=== PATIENT | male | born 1985 ===

== ENCOUNTER 2018-03-09 17:34 | Emergency (ER) | payer OTHER ==
[2018-03-09] MEDS ORDERED: Acetaminophen/Codeine 120-12 MG/5 ML Soln 5 ML UD Cup PO ONE (18:27)
[2018-03-09] MEDS ORDERED: Ibuprofen Susp 100 MG/5 ML 5 ML UD Cup PO ONE (18:28)
--- NOTE | 2018-03-19 17:53 | EDM.PDOC ---
Scribed by Rosalia Escalera 03/09/18 0405 for Joe Caal MD ED HPI GENERAL MEDICAL PROBLEM - General Chief Complaint: ENT Problem Stated Complaint: PAIN AFTER SURGERY [id number] Time Seen by Provider: 03/09/18 18:21 Source of Information: Reports: Patient, RN, RN Notes Reviewed History Limitations: Reports: No Limitations - History of Present Illness INITIAL COMMENTS - FREE TEXT/NARRATIVE: Pt c/o severe mouth/dental pain. reports pt had all of his teeth extracted this morning and dentures were placed at the same time. Pt was instructed by the oral surgeon to leave the dentures in place, and not to remove them for any reason. Pt was prescribed 2 medications for pain, but when he went to the pharmacy he discovered that he was prescribed tylenol and ibuprofen, and states that he cannot even get the pills in his mouth without severe pain, and he has difficulty swallowing them. Onset: Today Location: Reports: Other (dental) Quality: Reports: Ache, Throbbing Severity: Severe Improves with: Reports: None Worsens with: Reports: None Associated Symptoms: Reports: No Other Symptoms Treatments [employer]: Reports: Acetaminophen, NSAIDS, Other Medication(s) Oral/Mouth Pain Score (Numeric/FACES): 8 - Related Data Allergies Allergy/AdvReac Type Severity Reaction Status Date / Time No Known Allergies Allergy Verified 03/09/18 18:13 Home Meds: Home Meds . [Unable to Verify Home Med List] 03/09/18 [History] Past Medical History Psychiatric History: Reports: Anxiety, PTSD Social & Family History - Family History Family Medical History: Unobtainable - Living Situation & Occupation Living situation: Reports: Occupation: Disabled ED ROS ENT - Review of Systems Review Of Systems: ROS reveals no pertinent complaints other than HPI. ED EXAM, ENT - Physical Exam Exam: See Below Exam Limited By: Physical Impairment (mouth pain) General Appearance: Alert, Anxious, Mild Distress (due to pain) Ears: Hearing Grossly Normal Nose: Normal Inspection, Normal Mucousa, No Blood Mouth/Throat: Dental Pain, Dental Tenderness, Drooling, Other (dentures in place , and not to be removed per oral surgeons orders) Head: Atraumatic, Normocephalic Neck: Normal Inspection, Supple, Non-Tender, Full Range of Motion. No: Lymphadenopathy (L), Lymphadenopathy (R) Respiratory/Chest: No Respiratory Distress, Lungs Clear, Normal Breath Sounds, No Accessory Muscle Use, Chest Non-Tender Cardiovascular: Regular Rate, Rhythm Neurological: Alert, Oriented, No Motor/Sensory Deficits Psychiatric: Anxious Skin: Warm, Dry, Intact, Normal Color, No Rash Course - Vital Signs Last Recorded V/S: Last Vital Signs Temp 37.6 C 03/09/18 18:00 Pulse 78 03/09/18 18:00 Resp 16 03/09/18 18:00 BP 125/81 03/09/18 18:00 Pulse Ox 96 03/09/18 18:00 - Orders/Labs/Meds Meds: Medications Discontinued Medications Generic Name Dose Route Start Last Admin Trade Name Freq PRN Reason Stop Dose Admin Acetaminophen/Codeine Phosphate 15 ml 03/09/18 18:27 03/09/18 18:45 Tylenol/Codeine 120-12 Mg/5 Ml PO 03/09/18 18:28 15 ml ONETIME ONE Administration Ibuprofen 600 mg 03/09/18 18:28 03/09/18 18:59 Motrin 100 Mg/5 Ml Susp PO 03/09/18 18:29 600 mg ONETIME ONE Administration Departure - Departure Time of Disposition: 18:30 Disposition: Home, Self-Care 01 Condition: Fair Clinical Impression: Acute post-operative pain, Pain, dental - Discharge Information Referrals: PCP,None [Primary Care Provider] - Forms: ED Department Discharge Additional Instructions: Rx: Tylenol Codeine Syrup *Do not drive while under the influence of this medication. Rx: Promethazine Syryp *Do not drive while under the influence of this medication. Use over the counter Ibuprofen (Advil/Motrin) 100mg/5mls: Take 600mg (30mls) by mouth every 6 hours as needed for pain. Do not exceed 2400mg in 24 hours. Call your oral surgeon or primary doctor Monday morning to arrange for pain management if needed. I have read and agree with the documentation that has been completed regarding this visit. By signing this record, I attest that the documentation was completed in my physical presence and is an accurate record of the encounter.
== END 2018-03-09 19:11 | disposition home or self-care (01) ==
LOC: DL.ED 17:34
DX: G89.18 Other acute postprocedural pain (principal); K08.89 Other specified disorders of teeth and supporting structures
CPT/HCPCS: 99282; A9270